=== PATIENT | female | born 1990 | race Hispanic/Latino ===

== ENCOUNTER 2019-10-02 14:45 | Inpatient (IN) | payer BC ==
[~2019-10-02] VITALS: Ht 157.5 cm; Wt 81.0 kg
--- NOTE | 2019-10-13 09:37 | NUR ---
10/13/19 0937 Rupali Mcintosh 0939 PT ARRIVED TO PACU ON RA, PT AWAKE AND TALKING TO RN. VSS. PT DENIES PAIN AND NAUSEA. AT BEDSIDE. IV INFUSING LR WITH 20 PIT AND SITE WNL. 0932 BABY TO CHEST. FUNDAL CHECK EDUCATION GIVEN.
--- NOTE | 2019-10-14 07:44 | PR ---
[facility] [address] [facility] [place], [place] [address] Signed PP Progress Notes Datetime Report Generated by CPN: 10/14/2019 07:44 SUBJECTIVE: [id number] Pain: Within normal limits Nausea/Vomiting: Denies Vital Signs: [id number] Vital Signs: Reviewed; Within Normal Limits Notable Details: PP Hgb/Hct = 6.3/19.4 EXAM: [id number] Abdomen/Uterus: Normal Lochia: Normal Extremities: Normal Incision: Normal IMPRESSION/PLAN/PROCEDURES: [id number] Impression: Normal progression Other Impression: PP Anemia Plan: Continue present management Procedures: Transfusion Progress Notes: Doing well, without complalint. Discussed critical value anemia. Recommend transfusion PRBC 's; discussed risks vs benefits, questions answeered. Patient agrees, so will transfuse 2 units PRBC, recheck hemogram in am Signing Physician: Joaquim Stokes MD Copies: ~ *Electronically Signed* 10/14/19 0744 JOAQUIM STOKES MD PATIENT NAME: MARGARITA POLANCO PROGRESS NOTE DATE OF : [birth year] PHYSICIAN: JOAQUIM STOKES MD RPT #: [id number] REPORT IS CONFIDENTIAL AND NOT TO BE RELEASED WITHOUT AUTHORIZATION
--- NOTE | 2019-10-14 10:08 | OR ---
[address] [address] Signed DATE OF OPERATION: 10/13/2019 SURGEON: Joaquim Gipson MD The patient of Dr. Gipson. PREOPERATIVE DIAGNOSIS: Term , previous section x2. POSTOPERATIVE DIAGNOSIS: Term , previous section x2. PROCEDURES PERFORMED: Repeat low transverse segment section, delivery of live female infant. CLERICAL OFFICE: Dr. Garay. ANESTHESIA: Spinal. ESTIMATED BLOOD LOSS: 600 mL. COMPLICATIONS: None. DRAINS: Miller to bladder. FINDINGS: Live female infant, Apgars 8 and 9. Weight 6 pounds 10 ounces. Normal uterus except for thin lower uterine segment. There were no adhesions present. Normal tubes and ovaries bilateral. DESCRIPTION OF PROCEDURE: The patient was brought to the operating room, placed in supine position. After adequate spinal anesthesia was obtained, was prepped and draped in usual sterile fashion. Miller catheter was placed in the bladder. A Pfannenstiel skin incision was made through previous surgical scar using a scalpel. Subcutaneous tissue was dissected Electronically Signed By: JOAQUIM GIPSON MD 10/14/19 1008 PATIENT NAME: MARGARITA POLANCO OPERATIVE REPORT DATE OF : [birth year] REPORT #: [id number] PHYSICIAN: JOAQUIM GIPSON MD PCP: UNASSIGNED DOCTOR REPORT IS CONFIDENTIAL AND NOT TO BE RELEASED WITHOUT AUTHORIZATION [place] [address] [place], [place] [address] Signed with Bovie and scalpel. The fascia was nicked with scalpel and extended in transverse fashion using curved scissors. The underlying abdominal musculature was bluntly and sharply from the fascia above and below the incision. The abdominal musculature was bluntly and sharply along the midline peritoneum and opened with curved scissors in standard vertical fashion using curved scissors. The Victor Hugo self-retaining retractor was inserted into the incision and tightened in place. The above findings were noted. The lower segment was noted to be quite thin. Incision made just at the upper edge of the thin area and just below the edge of the anterior placenta which could be identified. The bulging bag, clear fluid came from the incision. Incision was extended in transverse fashion using curved scissors and pickups with teeth used to open the membranes. The infant was noted to be in a vertex LOP presentation. Infant head easily delivered from the incision. The rest of the was easily delivered from the incision and the cord doubly clamped and cut. The passed off table in good condition to the awaiting nurse. The placenta was manually removed and uterine cavity explored with a lap pad to remove any retained membranes. An angle stitch of 0 Monocryl was placed at one end of the incision and a running locking stitch of 0 Monocryl starting at the other end used to close the incision. A 2nd running stitch of 0 Monocryl was used to imbricate the first layer, taking care to attempt to bring the thin lower segment more together so that would be thicker after healing and also avoiding the bladder. The pelvis was irrigated, suctioned and examined. One small bleeding spot on the lower segment to the left was noted. This was controlled with a simple stitch of 0 Monocryl suture. When good hemostasis was obtained the Victor Hugo retractor was removed. A sheet of ACell placed over the lower uterine segment to help with healing. The anterior wall of the peritoneum was then closed using running stitch of 2-0 Vicryl suture. Abdominal musculature was reapproximated using interrupted stitches of 0 Vicryl suture. The abdominal wall incision was irrigated, suctioned and examined. Any bleeding spots cauterized with the Bovie and good hemostasis was obtained. Powdered ACell was sprinkled on the abdominal musculature to help with healing and then the fascia closed using two running stitches of 0 Vicryl suture meeting in the midline. Subcutaneous tissue was irrigated, suctioned and examined. Any bleeding spots were cauterized with the Bovie. Subcutaneous tissue was closed using interrupted stitches of 3-0 Vicryl suture and the skin reapproximated using skin clips. The patient tolerated the procedure well, went to recovery room in good condition. The sponge, needle, and instrument count were correct at the end of procedure. Joaquim Gipson MD MJB/MODL Electronically Signed By: JOAQUIM GIPSON MD 10/14/19 1008 PATIENT NAME: MARGARITA POLANCO OPERATIVE REPORT DATE OF : [birth year] REPORT #: [id number] PHYSICIAN: JOAQUIM GIPSON MD PCP: UNASSIGNED DOCTOR REPORT IS CONFIDENTIAL AND NOT TO BE RELEASED WITHOUT AUTHORIZATION [facility] [address] [place] [id number] Signed /[id number] Copies: ~ Electronically Signed By: JOAQUIM GIPSON MD 10/14/19 1008 PATIENT NAME: MARGARITA POLANCO OPERATIVE REPORT DATE OF : [birth year] REPORT #: [id number] PHYSICIAN: JOAQUIM GIPSON MD PCP: UNASSIGNED DOCTOR REPORT IS CONFIDENTIAL AND NOT TO BE RELEASED WITHOUT AUTHORIZATION
[2019-10-15] MEDS ORDERED: IRON325 M1 PO (00:39)
[2019-10-15] MEDS ORDERED: PRENATAL VITAM1 EAC6 PO (00:39)
--- NOTE | 2019-10-15 11:08 | PR ---
[facility] [address] [facility] [place], [place] [address] Signed PP Progress Notes Datetime Report Generated by CPN: 10/15/2019 11:08 SUBJECTIVE: [id number] Pain: Within normal limits Nausea/Vomiting: Denies Vital Signs: [id number] Vital Signs: Reviewed; Within Normal Limits Notable Details: Post transfusion Hgb/Hct = 8.4/25.7 EXAM: [id number] Abdomen/Uterus: Normal Lochia: Normal Extremities: Normal Incision: Normal IMPRESSION/PLAN/PROCEDURES: [id number] Impression: Normal progression Other Impression: PP Anemia Plan: Discharge Procedures: None Progress Notes: Doing well, without complaint, feeling better after transfusion. Ready to go home. Signing Physician: Joaquim Stokes MD Copies: ~ *Electronically Signed* 10/15/19 1108 JOAQUIM STOKES MD PATIENT NAME: MARGARITA POLANCO PROGRESS NOTE DATE OF : [birth year] PHYSICIAN: JOAQUIM STOKES MD RPT #: [id number] REPORT IS CONFIDENTIAL AND NOT TO BE RELEASED WITHOUT AUTHORIZATION
== END 2019-10-15 13:20 | disposition home or self-care (01) | DRG 788 ==
LOC: FBC 10-13 06:40
PROVIDERS: ADMIT General Practice
PROC: 10D00Z1 Extraction of Products of Conception, Low, Open Approach (ICD-10-PCS; principal; 2019-10-13 06:45)
PROC: 30233N1 Transfusion of Nonautologous Red Blood Cells into Peripheral Vein, Percutaneous Approach (ICD-10-PCS; 2019-10-14)
DX: O34.211 Maternal care for low transverse scar from previous cesarean delivery (principal); N85.8 Other specified noninflammatory disorders of uterus; Z37.0 Single live birth; O99.02 Anemia complicating childbirth; D64.9 Anemia, unspecified; O99.824 Streptococcus B carrier state complicating childbirth; Z3A.39 39 weeks gestation of pregnancy; O36.5930 Maternal care for other known or suspected poor fetal growth, third trimester, not applicable or unspecified
CPT/HCPCS: 01961; 36415; 85027; 86850; 86900; 86901; 86920; A9270; J0690; J1100; J2001; J2274; J2300; J2370; J2405; J2590; J3010; J7121; P9016; Q0163